=== PATIENT | male | born 1980 | race Caucasian/White ===

== ENCOUNTER 2016-11-27 15:52 | Emergency (ER) | payer MEDICARE, OTHER ==
--- NOTE | ~2016-11-27 | CT16 ---
[facility] A Service [facility] RADIOLOGY TEXT RESULTS PATIENT: ORION HUDDLESTON LOCATION: [facility] : 78 UNIT #: [id number] AGE: [address]: Jocelyne Rivera WELDING SETTER MANAGER TRADE SEX: M ORDER DR: [id number] [address] [address] [id number] E MR#: [id number] Acc #: [id number] NAME: ORION HUDDLESTON : 1980 SEX: M STUDY DATE/TIME: 11/27/2016 18:10 UNIT: SED ROOM: STUDY DESCRIPTION: CT Angio Chest for PE Attending Physician: Jocelyne Rivera A.P.R.N. Ordering Physician: Jocelyne Rivera A.P.R.N. Primary Care Physician: Sandra Smallwood M.D. MEDICAL IMAGING REPORT This report is preliminary unless electronic signature is present. EXAM Chest CT angiogram with contrast DATE OF STUDY 11/27/2016 PROCEDURE Axial contrast-enhanced CT angiogram with [address] exam was performed with one or more of the following radiation dose reduction techniques: automatic exposure control, adjustment of mA and/or kV according to patient size, and iterative reconstruction. COMPARISON Chest radiograph same date. CLINICAL HISTORY Congestion and wheezing. FINDINGS There is dense consolidation without central airway obstruction in the right upper lobe. There is no effusion. Lung parenchyma is otherwise normal. There is no mediastinal mass or adenopathy. There is no evidence of pulmonary embolism and bolus timing is adequate. Thoracic aorta is normal in caliber. Images of the upper abdomen are unremarkable. IMPRESSION 1. Dense right upper lobe consolidation without effusion. 2. Good bolus timing. No evidence of pulmonary embolism. 3. Normal thoracic aorta. [facility] A Service [facility] RADIOLOGY TEXT RESULTS PATIENT: ORION HUDDLESTON LOCATION: [facility] : 78 UNIT #: [id number] AGE: [address]: Jocelyne Rivera APRN SEX: M ORDER DR: Dictated by... David Knight M.D. THIS IS AN ELECTRONICALLY VERIFIED REPORT David Knight M.D. at 11/30/2016 4:32 PM TEV/roopa TD: 11/28/2016 12:38 JOB #: [id number] MEDICAL IMAGING REPORT
--- NOTE | ~2016-11-27 | CR63 ---
[facility] A Service [facility] RADIOLOGY TEXT RESULTS PATIENT: ORION HUDDLESTON LOCATION: [facility] : 78 UNIT #: [id number] AGE: [address]: Jocelyne Rivera MEDICAL BILLER CODER STUDENT ASSISTANT SEX: M ORDER DR: [id number] [address] [address] [id number] E MR#: [id number] Acc #: [id number] NAME: ORION HUDDLESTON : 1980 SEX: M STUDY DATE/TIME: 11/27/2016 15:51 UNIT: SED ROOM: STUDY DESCRIPTION: CR Chest 2 View Attending Physician: Jocelyne Rivera A.P.R.N. Ordering Physician: Jocelyne Rivera A.P.R.N. Primary Care Physician: Sandra Smallwood M.D. MEDICAL IMAGING REPORT This report is preliminary unless electronic signature is present. EXAM PA and lateral radiographs of the chest HISTORY Congestion and wheezing. TECHNIQUE PA and lateral radiographs of the chest are presented. COMPARISON 06/05/2016 FINDINGS The lungs are well-inflated. There is an area of relatively dense somewhat wedge-shaped airspace disease in the lateral right upper lobe abutting the lateral pleura. Centrally in the right suprahilar region, there are less well-defined patchier densities. I have that this represents pneumonia in the right upper lobe with more extensive consolidative change in the lateral right upper lobe. Please correlate with the patients clinical presentation. The somewhat wedge-shaped configuration of the denser airspace disease could raise differential diagnostic possibility, in the appropriate clinical setting, of pulmonary embolus with infarction. This is felt less likely. Follow-up to complete radiographic resolution is recommended. Slight blunting of the bilateral costophrenic sulci may reflect trace pleural effusions. No drainable pleural fluid collection. Remainder of lungs clear. No suspicious nodule. Heart and mediastinum normal in size and contour. Bony structures unremarkable. Upper abdomen unremarkable. [facility] A Service [facility] RADIOLOGY TEXT RESULTS PATIENT: ORION HUDDLESTON LOCATION: [facility] #: [id number] : 76 UNIT #: [id number] AGE: [address]: Jocelyne Rivera APRN STUDENT ASSISTANT SEX: M ORDER DR: Dictated by... Alfredo Coon M.D. THIS IS AN ELECTRONICALLY VERIFIED REPORT Alfredo Coon M.D. at 11/28/2016 8:22 PM ALEXANDRA/roopa TD: 11/28/2016 10:09 JOB #: [id number] MEDICAL IMAGING REPORT
[~2016-11-27 15:52] MED LIST: ALBUTEROL17 GM INH; ALIGN4 MG PO; ALPRAZOLAM PO; B12 SQ; BONIVA3 MG/3 ML IV; CALCIUM + D 6001 TA1 PO; CALCIUM 600 +1 EA10 PO; CARAFATE PO; CLARITIN10 M2 PO; DARVOCET-N 1001 TAB PO; DURAGESIC1 EAC1 TD; ENTYVIO300 MG IV; FISH OIL 1,0001 CA2 PO; FLINTSTONES1 EACH PO; FOLIC ACID PO; FOLIC ACID1 MG PO; HUMIRA40 MG/0.1 SQ; K-DUR20 ME1 PO; K-LOR20 MEQ PO; KCL PO; LORTAB 7.5-5001 TAB PO; MAGNESIUM400 MG PO; METHOTREXA25 MG/1 M1 INJ; NEXIUM PO; OXYCODONE HCL15 MG PO; PAXIL CR PO; PERCOCET 10/3251 TAB PO; PERCOCET7.5 PO; PHENERGAN PO; PREDNISONE PO; PREDNISONE10 MG PO; PROTONIX PO; RECLAST 55 MG/100 M IV; SIMETHICONE120 ML PO; SINGULAIR PO; SODIUM PHOSPHA MC; TUMS500 M1 PO; VITAMIN B12-FO1 EACH; VITAMIN D3400 UNI1 PO; VITAMIN D350000 UNIT PO; ZINC SULFATE220 M1 PO; ZOFRAN; ZOFRAN PO; [UNRECOGNIZED DRUG - OTHER] SQ
[2016-11-27 15:53] LABS: INFLUENZA A NEG (NEG); INFLUENZA B NEG (NEG)
[2016-11-27 17:41] LABS: BASOPHIL% 0.1 % (0-2.5); DIFF IND NO; EOSINOPHIL# 0.1 X10e3 (0-0.7); EOSINOPHIL% 0.6 % (0.0-7.0); HEMATOCRIT 41.4 % (38.0-50.0); HEMOGLOBIN 13.7 gm/dL (13.0-16.0); LYMPHOCYTE# 0.8 X10e3 (1.0-3.5); LYMPHOCYTE% 9.4 % (17.0-45.0); MEAN CELL VOLUME 88.5 FL (83-96); MEAN CORPUSCULAR HEMOGLOBIN 29.3 PG (28-34); MEAN CORPUSCULAR HGB CONC 33.1 g/dL (30-36); MEAN PLATELET VOLUME 8.8 FL (6.5-11.5); MONOCYTE# 0.2 X10e3 (0-1.0); MONOCYTE% 2.5 % (3.0-12.0); NEUTROPHIL# 7.1 X10e3 (1.5-7.1); NEUTROPHIL% 87.4 % (40-75); PLATELET COUNT 285 X10e3 (140-420); RED BLOOD COUNT 4.67 X10e (3.90-5.60); RED CELL DISTRIBUTION WIDTH 15.1 % (11.0-15.5); WHITE BLOOD COUNT 8.1 X10e3 (4.0-10.5)
[2016-11-27 17:58] LABS: ALBUMIN SERUM 3.9 g/dL (3.5-5.0); ALKALINE PHOSPHATASE 73 U/L (32-92); ALT (SGPT) 15 U/L (10-40); AST (SGOT) 20 U/L (10-42); BILIRUBIN,TOTAL 0.8 mg/dL (0.2-2.0); BLOOD UREA NITROGEN 13 mg/dL (9-23); BUN/CREATININE RATIO 11.81; CALCIUM SERUM 8.9 mg/dL (8.4-10.2); CARBON DIOXIDE 29 mmol/L (22-31); CHLORIDE 101 mmol/L (100-111); CREATININE SERUM 1.1 mg/dL (0.6-1.4); GLOM FILT RATE Estimated ABOVE60 mL/min (>60); GLUCOSE FASTING 141 mg/dL (70-110); POTASSIUM 3.2 mmol/L (3.5-5.1); SODIUM 140 mmol/L (135-145)
[2016-11-27] MEDS ORDERED: DOXYCYCLINE HY100 M3 PO (18:49)
[2016-12-06] MEDS ORDERED: POTASSIUM (22:23)
[2016-12-28] MEDS ORDERED: CALCIUM + D 6001 TA1 PO (18:49)
[2017-02-03] MEDS ORDERED: AMOXICILLIN500 M1 PO (13:36)
[2017-03-03] MEDS ORDERED: PREDNISOLONE5 MG PO (13:36)
[2017-03-03] MEDS ORDERED: B-12 (15:03)
[2017-03-03] MEDS ORDERED: ENTIVIO IV (15:03)
[2017-03-03] MEDS ORDERED: OXYCODONE PO (15:04)
[2017-03-03] MEDS ORDERED: ALPRAZOLAM0.25 MG PO (17:37)
[2017-03-03] MEDS ORDERED: VITAMIN D32000 UNIT PO (18:50)
[2017-03-03] MEDS ORDERED: K-DUR20 ME1 DOB (18:50)
[2017-03-03] MEDS ORDERED: PREDNISONE PO (18:50)
== END 2016-11-27 18:58 | disposition home or self-care (01) ==
LOC: CED 15:52
PROVIDERS: Nurse Practitioner
DX: J18.9 Pneumonia, unspecified organism (principal); F41.9 Anxiety disorder, unspecified; K50.90 Crohn's disease, unspecified, without complications
CPT/HCPCS: 36415; 71020; 71275; 80053; 85025; 87040; 87651; 87804; 96365; 99284; J0696; Q9967

== ENCOUNTER 2016-12-06 22:43 | Emergency (ER) | payer MEDICARE, OTHER ==
--- NOTE | ~2016-12-06 | CR63 ---
[facility] A Service of [facility] & [facility] RADIOLOGY TEXT RESULTS PATIENT: ORION HUDDLESTON LOCATION: SED : 76 UNIT #: [id number] AGE: [address]: FABIO ROSENBERG PA-C SEX: M ORDER DR: [id number] [address] [address] [id number] E MR#: [id number] Acc #: [id number] NAME: ORION HUDDLESTON. : 1980 SEX: M STUDY DATE/TIME: 12/07/2016 0:30 UNIT: SED ROOM: STUDY DESCRIPTION: CR Chest 2 View Attending Physician: Fabio Rosenberg Pa-C Ordering Physician: Sammy Cortes M.D. Primary Care Physician: Sandra Smallwood M.D. MEDICAL IMAGING REPORT This report is preliminary unless electronic signature is present. EXAM PA lateral chest date 12/07/2016 HISTORY Cough and possible pneumonia. Symptoms began last week. COMPARISON PA lateral chest 11/27/2016. CT chest 11/27/2016. FINDINGS Right upper lobe airspace disease has significantly improved with mild residual infiltrate remaining. No new airspace disease identified. Heart size normal. Left lung is clear. No pleural effusion or pneumothorax is identified. IMPRESSION 1. Significantly significant interval improvement in right upper lobe airspace disease since 11/27/2016 suggesting improving pneumonia. Mild residual infiltrate remains. No new airspace disease is evident. Dictated by... Ashley Romero M.D. THIS IS AN ELECTRONICALLY VERIFIED REPORT Ashley Romero M.D. at 12/07/2016 10:02 PM [facility]/ross TD: 12/07/2016 07:28 JOB #: [id number] MEDICAL IMAGING REPORT
--- NOTE | ~2016-12-06 | CT2 ---
[facility] A Service of [facility] & [facility] RADIOLOGY TEXT RESULTS PATIENT: ORION HUDDLESTON LOCATION: SED : 78 UNIT #: [id number] AGE: [address]: FABIO ROSENBERG PA-C SEX: M ORDER DR: [id number] [address] [address] [id number] E MR#: [id number] Acc #: [id number] NAME: ORION HUDDLESTON. : 1980 SEX: M STUDY DATE/TIME: 12/07/2016 0:39 UNIT: SED ROOM: STUDY DESCRIPTION: CT Abd and Pelv W Cont Attending Physician: Fabio Rosenberg Pa-C Ordering Physician: Sammy Cortes M.D. Primary Care Physician: Sandra Smallwood M.D. MEDICAL IMAGING REPORT This report is preliminary unless electronic signature is present. EXAM CT abdomen and pelvis with contrast 12/07/2016 HISTORY 36-year-old male with complaints of abdominal pain and cramping today. Blood from ileostomy tonight. History of colon resection, Crohn's disease. COMPARISON CT abdomen and pelvis with contrast 11/06/2016. TECHNIQUE This CT examination was performed with one or more of the following radiation dose reduction techniques: automatic exposure control, adjustment of mA and/or kV according to patient size, and iterative reconstruction. PROCEDURE 5 mm axial images from lung bases through lesser trochanters after intravenous contrast administration. Enteric contrast was also administered. Sagittal and coronal reformatted images were obtained. FINDINGS Although enteric contrast was administered, [id number] bowel loops are not opacified with enteric contrast at the time of image acquisition. Colectomy changes are present. Right lower quadrant ileostomy in place. There is air contrast dilation of proximal small bowel loops, with more distal loops being less well distended. However, there is no convincing evidence of high-grade obstruction on this examination. There is a short segment of small bowel in the midline of the lower abdomen (series 2 image 66 denoted by arrows) which appears to have mild abnormal wall thickening and enhancement suggesting active inflammatory process. No fistula or abscess is seen. No free air or pneumatosis. The ileostomy itself appears unremarkable. [facility]. [facility] A Service of [facility] & [facility] RADIOLOGY TEXT RESULTS PATIENT: ORION HUDDLESTON LOCATION: SED : 76 UNIT #: [id number] AGE: [address]: FABIO ROSENBERG PA-C SEX: M ORDER DR: Lung bases are clear. Noncontrast appearance of the liver, gallbladder, spleen, pancreas, adrenals and kidneys within normal limits. Mild bilateral renal pelviectasis unchanged. PELVIS: No free air, free fluid or abscess. Urinary bladder and rectum are within normal limits. IMPRESSION 1. No evidence of high-grade bowel obstruction. There is short segment wall thickening and enhancement of bowel in the midline of the lower abdomen/pelvis suggesting active inflammatory process in this patient with a history of Crohn's disease. No evidence of fistula or abscess. 2. Colectomy with right lower quadrant ileostomy. 3. Mesenteric lymph nodes are less conspicuous than on the previous 11/06/2016 examination suggesting they represent benign reactive findings. Dictated by... Ashley Romero M.D. THIS IS AN ELECTRONICALLY VERIFIED REPORT Ashley Romero M.D. at 12/07/2016 10:02 PM EVE/beth TD: 12/07/2016 07:48 JOB #: [id number] MEDICAL IMAGING REPORT
[~2016-12-06 22:43] MED LIST changes: +DOXYCYCLINE HY100 M3 PO; +POTASSIUM
[2016-12-06 23:10] LABS: BASOPHIL# 0.1 X10e3 (0-0.3); BASOPHIL% 0.6 % (0-2.5); EOSINOPHIL% 0.1 % (0.0-7.0); HEMATOCRIT 36.5 % (38.0-50.0); HEMOGLOBIN 11.9 gm/dL (13.0-16.0); LYMPHOCYTE# 1.4 X10e3 (1.0-3.5); MEAN CELL VOLUME 89.1 FL (83-96); MEAN CORPUSCULAR HEMOGLOBIN 29.1 PG (28-34); MEAN CORPUSCULAR HGB CONC 32.7 g/dL (30-36); MEAN PLATELET VOLUME 7.8 FL (6.5-11.5); MONOCYTE# 0.6 X10e3 (0-1.0); MONOCYTE% 5.8 % (3.0-12.0); NEUTROPHIL# 7.7 X10e3 (1.5-7.1); NEUTROPHIL% 79.5 % (40-75); PLATELET COUNT 251 X10e3 (140-420); WHITE BLOOD COUNT 9.7 X10e3 (4.0-10.5)
[2016-12-06 23:13] LABS: DIFF IND NO
[2016-12-06 23:15] LABS: INR 1.1; PROTHROMBIN TIME (PATIENT) 12.2 SECONDS (9.5-12.4)
[2016-12-06 23:24] LABS: ALBUMIN SERUM 3.4 g/dL (3.5-5.0); ALKALINE PHOSPHATASE 53 U/L (32-92); ALT (SGPT) 17 U/L (10-40); AST (SGOT) 17 U/L (10-42); BILIRUBIN, DIRECT 0.1 mg/dL (0.0-0.2); BILIRUBIN,INDIRECT 0.4 mg/dL (0.0-0.9); BILIRUBIN,TOTAL 0.5 mg/dL (0.2-2.0); BLOOD UREA NITROGEN 15 mg/dL (9-23); CALCIUM SERUM 8.4 mg/dL (8.4-10.2); CARBON DIOXIDE 28 mmol/L (22-31); CHLORIDE 101 mmol/L (100-111); GLOM FILT RATE Estimated ABOVE60 mL/min (>60); GLUCOSE FASTING 113 mg/dL (70-110); POTASSIUM 3.9 mmol/L (3.5-5.1); PROTEIN TOTAL SERUM 5.9 g/dL (6.0-8.3); SODIUM 138 mmol/L (135-145)
[2016-12-06 23:57] LABS: URINE SOURCE CLEAN CATCH
[2016-12-07 00:02] LABS: URINE APPEARANCE CLEAR; URINE BILIRUBIN NEG (NEG); URINE BLOOD NEG (NEG); URINE COLOR YELLOW; URINE GLUCOSE NEG (NORM); URINE KETONE NEG (NEG); URINE LEUKOCYTE ESTERASE NEG (NEG); URINE NITRATE NEG (NEG); URINE PH 6.5 (5-8); URINE PROTEIN NEG (NEG); URINE UROBILINOGEN 0.2 MG/DL (NORM)
[2016-12-07 00:03] LABS: MICRO INDICATED? NO
[2016-12-28] MEDS ORDERED: CALCIUM + D 6001 TA1 PO (18:49)
[2017-02-03] MEDS ORDERED: AMOXICILLIN500 M1 PO (13:36)
[2017-03-03] MEDS ORDERED: PREDNISOLONE5 MG PO (13:36)
[2017-03-03] MEDS ORDERED: B-12 (15:03)
[2017-03-03] MEDS ORDERED: ENTIVIO IV (15:03)
[2017-03-03] MEDS ORDERED: OXYCODONE PO (15:04)
[2017-03-03] MEDS ORDERED: ALPRAZOLAM0.25 MG PO (17:37)
[2017-03-03] MEDS ORDERED: VITAMIN D32000 UNIT PO (18:50)
[2017-03-03] MEDS ORDERED: K-DUR20 ME1 DOB (18:50)
[2017-03-03] MEDS ORDERED: PREDNISONE PO (18:50)
== END 2016-12-07 02:21 | disposition home or self-care (01) ==
LOC: SED 22:43
PROVIDERS: Physician Assistant
DX: K50.00 Crohn's disease of small intestine without complications (principal); J18.9 Pneumonia, unspecified organism; F41.9 Anxiety disorder, unspecified; M81.0 Age-related osteoporosis without current pathological fracture; Z98.890 Other specified postprocedural states; Z79.899 Other long term (current) drug therapy
CPT/HCPCS: 36415; 71020; 74177; 80048; 80076; 81003; 82270; 85025; 85610; 85730; 96361; 96374; 99284; J2270; J2405; Q9967

== ENCOUNTER → 2016-12-18 | Outpatient (CLI) | payer MEDICARE, OTHER ==
[~2016-12-18] MED LIST changes: +ALPRAZOLAM0.25 MG PO; +AMOXICILLIN500 M1 PO; +B-12; +ENTIVIO IV; +K-DUR20 ME1; +K-DUR20 ME1 DOB; +OXYCODONE PO; +PREDNISOLONE5 MG PO; +VITAMIN D250000 UNIT PO/SL; +VITAMIN D32000 UNIT PO
--- NOTE | ~2016-12-18 | CR63 ---
[facility] A Service of [facility] & [facility] RADIOLOGY TEXT RESULTS PATIENT: ORION HUDDLESTON LOCATION: [facility] : 78 UNIT #: [id number] AGE: [address]: Sandra Smallwood MD SEX: M ORDER DR: [id number] [facility] [address]. [place], [place] [address] [id number] O MR#: [id number] Acc #: [id number] NAME: ORION HUDDLESTON. : 1980 SEX: M STUDY DATE/TIME: 12/18/2016 16:02 UNIT: [facility] ROOM: STUDY DESCRIPTION: CR Chest 2 View Attending Physician: Sandra Smallwood M.D. Ordering Physician: Sandra Smallwood M.D. Primary Care Physician: Sandra Smalwlood M.D. MEDICAL IMAGING REPORT This report is preliminary unless electronic signature is present EXAM PA and lateral chest dated 12/18/2016. COMPARISON STUDIES 12/07/2016 HISTORY Follow up of pneumonia, shortness of breath for 3 weeks. FINDINGS PA and lateral views of the chest are obtained. Cardiac size in the patient is upper limits of normal. Vascular pattern is normal. The infiltrate right upper lobe is improved but it has not cleared completely. CONCLUSION Decrease in right upper lobe infiltrate. It has not cleared completely. Dictated by... Alfredo Galeas M.D. THIS IS AN ELECTRONICALLY VERIFIED REPORT Alfredo Galeas M.D. at 12/21/2016 2:44 PM Juany TD: 12/18/2016 20:27 JOB #: [id number] MEDICAL IMAGING REPORT Page 1 of 1 COPY
== END | disposition home or self-care (01) ==
LOC: CRAD 15:47
DX: J18.9 Pneumonia, unspecified organism (principal); R91.8 Other nonspecific abnormal finding of lung field
CPT/HCPCS: 71020

== ENCOUNTER 2016-12-20 19:03 | Emergency (ER) | payer MEDICARE, OTHER ==
--- NOTE | ~2016-12-20 | CR72 ---
[facility] A Service of [facility] & [facility] RADIOLOGY TEXT RESULTS PATIENT: ORION HUDDLESTON LOCATION: SED : 78 UNIT #: [id number] AGE: [address]: Alfredo Gonsalez MD SEX: M ORDER DR: [id number] [place] [id number] E MR#: [id number] Acc #: [id number] NAME: ORION HUDDLESTON : 1980 SEX: M STUDY DATE/TIME: 12/20/2016 19:20 UNIT: SED ROOM: STUDY DESCRIPTION: CR Chest Single View Portable Attending Physician: Alfredo Gonsalez M.D. Ordering Physician: Alfredo Gonsalez M.D. Primary Care Physician: Sandra Smallwood M.D. MEDICAL IMAGING REPORT This report is preliminary unless electronic signature is present. EXAM Portable chest HISTORY Tachycardia for 2 weeks. FINDINGS The cardiac size and pulmonary vascularity are within normal limits. Very mild mid-right thoracic curve. No infiltrates or effusions. IMPRESSION No acute findings. Lungs are clear. Dictated by... Ghanshyam Fountain M.D. THIS IS AN ELECTRONICALLY VERIFIED REPORT Ghanshyam Fountain M.D. at 12/21/2016 3:04 PM MAITE/beth TD: 12/21/2016 09:27 JOB #: [id number] MEDICAL IMAGING REPORT Page 1 of 1
--- NOTE | ~2016-12-20 | EKG ---
PATIENT: ORION HUDDLESTON UNIT #: [id number] Ventricular Rate: 116 BPM Atrial Rate: 116 BPM P-R Interval: 140 ms QRS Duration: 80 ms Q-T Interval: 320 ms QTC Calculation(Bezet): 444 ms P [place]: 47 degrees Calculated R [place]: 17 degrees Calculated T [place]: 14 degrees Diagnosis Line: Sinus tachycardia Diagnosis Line: Nonspecific ST abnormality Diagnosis Line: Abnormal ECG Diagnosis Line: When compared with ECG of 05-JUN-2016 16:39, Diagnosis Line: Vent. rate has increased BY 39 BPM Diagnosis Line: Confirmed by TRICIA AYERS MD ([id number]) on Diagnosis Line: 01/14/2017 7:10:20 AM INTERPRETING : NICHOLAS
[~2016-12-20 19:03] MED LIST changes: -ALPRAZOLAM0.25 MG PO; -AMOXICILLIN500 M1 PO; -B-12; -ENTIVIO IV; -K-DUR20 ME1; -K-DUR20 ME1 DOB; -OXYCODONE PO; -PREDNISOLONE5 MG PO; -VITAMIN D250000 UNIT PO/SL; -VITAMIN D32000 UNIT PO
[2016-12-20 19:59] LABS: BASOPHIL# 0.3 X10e3 (0-0.3); BASOPHIL% 4.1 % (0-2.5); DIFF IND NO; EOSINOPHIL% 0.2 % (0.0-7.0); HEMATOCRIT 36.5 % (38.0-50.0); HEMOGLOBIN 11.9 gm/dL (13.0-16.0); LYMPHOCYTE# 1.1 X10e3 (1.0-3.5); LYMPHOCYTE% 13.4 % (17.0-45.0); MEAN CELL VOLUME 90.6 FL (83-96); MEAN CORPUSCULAR HEMOGLOBIN 29.6 PG (28-34); MEAN CORPUSCULAR HGB CONC 32.7 g/dL (30-36); MEAN PLATELET VOLUME 7.5 FL (6.5-11.5); MONOCYTE# 0.2 X10e3 (0-1.0); MONOCYTE% 2.2 % (3.0-12.0); NEUTROPHIL# 6.6 X10e3 (1.5-7.1); NEUTROPHIL% 80.1 % (40-75); PLATELET COUNT 240 X10e3 (140-420); RED BLOOD COUNT 4.03 X10e (3.90-5.60); RED CELL DISTRIBUTION WIDTH 16.1 % (11.0-15.5); WHITE BLOOD COUNT 8.3 X10e3 (4.0-10.5)
[2016-12-20 20:05] LABS: PROTHROMBIN TIME (PATIENT) 11.1 SECONDS (9.5-12.4)
[2016-12-20 20:11] LABS: POC - CKMB <1.0 ng/mL (0.0-7.9); POC - MYOGLOBIN 30.6 ng/mL (0.0-169.0)
[2016-12-20 20:12] LABS: POC - TROPONIN <0.05 ng/mL (<=0.05)
[2016-12-20 20:12] LABS: PARTIAL THROMBOPLASTIN TIME 23.5 SECONDS (25.6-38.1)
[2016-12-20 20:15] LABS: ALBUMIN SERUM 3.5 g/dL (3.5-5.0); ALKALINE PHOSPHATASE 65 U/L (32-92); ALT (SGPT) 24 U/L (10-40); AST (SGOT) 19 U/L (10-42); BILIRUBIN, DIRECT <0.1 mg/dL (0.0-0.2); BILIRUBIN,INDIRECT 0.1 mg/dL (0.0-0.9); BILIRUBIN,TOTAL 0.2 mg/dL (0.2-2.0); BLOOD UREA NITROGEN 19 mg/dL (9-23); BUN/CREATININE RATIO 15.83; CALCIUM SERUM 8.8 mg/dL (8.4-10.2); CARBON DIOXIDE 27 mmol/L (22-31); CHLORIDE 105 mmol/L (100-111); CREATININE SERUM 1.2 mg/dL (0.6-1.4); GLOM FILT RATE Estimated 76.3 mL/min (>60); GLUCOSE FASTING 141 mg/dL (70-110); LIPASE 30 U/L (22-51); PROTEIN TOTAL SERUM 6.5 g/dL (6.0-8.3); SODIUM 138 mmol/L (135-145)
[2016-12-20 20:52] LABS: URINE SOURCE CLEAN CATCH
[2016-12-20 20:55] LABS: URINE APPEARANCE CLEAR; URINE BILIRUBIN NEG (NEG); URINE BLOOD NEG (NEG); URINE COLOR YELLOW; URINE GLUCOSE NEG (NORM); URINE KETONE NEG (NEG); URINE LEUKOCYTE ESTERASE NEG (NEG); URINE NITRATE NEG (NEG); URINE PH 6.5 (5-8); URINE PROTEIN NEG (NEG); URINE UROBILINOGEN 0.2 MG/DL (NORM)
[2016-12-20 20:58] LABS: MICRO INDICATED? NO
[2016-12-28] MEDS ORDERED: CALCIUM + D 6001 TA1 PO (18:49)
[2017-02-03] MEDS ORDERED: AMOXICILLIN500 M1 PO (13:36)
[2017-03-03] MEDS ORDERED: PREDNISOLONE5 MG PO (13:36)
[2017-03-03] MEDS ORDERED: ENTIVIO IV (15:03)
[2017-03-03] MEDS ORDERED: B-12 (15:03)
[2017-03-03] MEDS ORDERED: OXYCODONE PO (15:04)
[2017-03-03] MEDS ORDERED: ALPRAZOLAM0.25 MG PO (17:37)
[2017-03-03] MEDS ORDERED: VITAMIN D32000 UNIT PO (18:50)
[2017-03-03] MEDS ORDERED: K-DUR20 ME1 DOB (18:50)
[2017-03-03] MEDS ORDERED: PREDNISONE PO (18:50)
== END 2016-12-20 21:15 | disposition home or self-care (01) ==
LOC: SED 19:03
PROVIDERS: Emergency Medicine
DX: R00.2 Palpitations (principal); R53.83 Other fatigue; K50.90 Crohn's disease, unspecified, without complications; F41.9 Anxiety disorder, unspecified
CPT/HCPCS: 36415; 71010; 80048; 80076; 81003; 82553; 83690; 83874; 84100; 84484; 85025; 85610; 85730; 93005; 96360; 99284

== ENCOUNTER → 2016-12-28 | Outpatient (CLI) | payer MEDICARE, OTHER ==
[~2016-12-28] MED LIST changes: +ALPRAZOLAM0.25 MG PO; +AMOXICILLIN500 M1 PO; +B-12; +ENTIVIO IV; +K-DUR20 ME1; +K-DUR20 ME1 DOB; +OXYCODONE PO; +PREDNISOLONE5 MG PO; +VITAMIN D250000 UNIT PO/SL; +VITAMIN D32000 UNIT PO
== END | disposition home or self-care (01) ==
LOC: CSSDAY 12:57
DX: K50.90 Crohn's disease, unspecified, without complications (principal)
CPT/HCPCS: 96365; J3380

== ENCOUNTER → 2017-02-03 | Outpatient (CLI) | payer MEDICARE, OTHER | END | disposition home or self-care (01) | LOC: CSSDAY 01-25 10:00 | DX: K50.90 Crohn's disease, unspecified, without complications (principal); Z79.899 Other long term (current) drug therapy | CPT/HCPCS: 96413; J3380 ==

== ENCOUNTER → 2017-02-25 | Outpatient (CLI) | payer MEDICARE, OTHER ==
[2017-02-25 10:29] LABS: HEMATOCRIT 40.4 % (38.0-50.0); HEMOGLOBIN 13.4 gm/dL (13.0-16.0); MEAN CELL VOLUME 90.2 FL (83-96); MEAN CORPUSCULAR HEMOGLOBIN 29.9 PG (28-34); MEAN CORPUSCULAR HGB CONC 33.2 g/dL (30-36); MEAN PLATELET VOLUME 7.2 FL (6.5-11.5); RED BLOOD COUNT 4.48 X10e (3.90-5.60); RED CELL DISTRIBUTION WIDTH 14.7 % (11.0-15.5); WHITE BLOOD COUNT 8.4 X10e3 (4.0-10.5)
[2017-02-25 10:52] LABS: BUN/CREATININE RATIO 9.23; CREATININE SERUM 1.3 mg/dL (0.6-1.4); GLOM FILT RATE Estimated 69.2 mL/min (>60); POTASSIUM 3.6 mmol/L (3.5-5.1)
[2017-02-25 13:13] LABS: THYROID STIMULATING HORMONE 3.53 uIU/ml (0.34-5.60)
[2017-02-25 15:12] LABS: FREE THYROXIN (T4) 0.91 ng/dL (0.58-1.64)
== END | disposition home or self-care (01) ==
LOC: SLAB 10:16
PROVIDERS: Internal Medicine
DX: R00.2 Palpitations (principal); E78.1 Pure hyperglyceridemia; K50.90 Crohn's disease, unspecified, without complications
CPT/HCPCS: 36415; 80048; 80061; 84439; 84443; 85027

== ENCOUNTER → 2017-03-03 | Outpatient (CLI) | payer MEDICARE, OTHER | END | disposition home or self-care (01) | LOC: CSSDAY 10:00 | DX: K50.90 Crohn's disease, unspecified, without complications (principal); Z79.899 Other long term (current) drug therapy | CPT/HCPCS: 96365; J3380 ==

== ENCOUNTER → 2017-04-02 | Outpatient (CLI) | payer MEDICARE, OTHER | END | disposition home or self-care (01) | LOC: CSSDAY 03-31 13:00 | DX: K50.90 Crohn's disease, unspecified, without complications (principal); Z79.899 Other long term (current) drug therapy | CPT/HCPCS: 96365; J3380 ==

== ENCOUNTER 2017-04-26 15:16 | Emergency (ER) | payer MEDICARE, OTHER ==
--- NOTE | ~2017-04-26 | CT2 ---
[facility]. [facility] A Service of [facility] RADIOLOGY TEXT RESULTS PATIENT: ORION HUDDLESTON LOCATION: SED : 76 UNIT #: [id number] AGE: [address]: Prakash Abdalla MD SEX: M ORDER DR: [id number] [address] [address] [id number] E MR#: [id number] Acc #: [id number] NAME: ORION HUDDLESTON. : 1980 SEX: M STUDY DATE/TIME: 04/26/2017 16:57 UNIT: SED ROOM: STUDY DESCRIPTION: CT Abd and Pelv W Cont Attending Physician: Prakash Abdalla M.D. Ordering Physician: Prakash Abdalla M.D. Primary Care Physician: Sandra Smallwood M.D. MEDICAL IMAGING REPORT This report is preliminary unless electronic signature is present. EXAM CT abdomen and pelvis with IV contrast HISTORY Left side abdomen pain for 2 weeks. Nausea, vomiting. Crohn disease. Prior colectomy. This CT exam was performed with one or more of the following radiation dose reduction techniques: automatic exposure control, adjustment of mA and/or kV according to patient size, and iterative reconstruction. FINDINGS CT abdomen and pelvis was performed with IV contrast. CT abdomen: Mild dilatation of multiple loops of small bowel throughout the abdomen, similar to CT 12/07/2016. Colectomy. Mild fatty infiltration of the liver. Gallbladder, spleen, pancreas, left kidney, and adrenal glands are normal. Incidental tiny subcentimeter cortical cysts in the upper pole of the right kidney. Normal caliber abdominal aorta. No ascites. Right lower quadrant ileostomy. CT pelvis: Moderate wall thickening of a small bowel segment in the central pelvis extending over a length of close to 6 cm, with interval progression of this finding compared to the prior CT. Given the patient's history, this is most likely secondary to Crohn disease. Other infectious or inflammatory enteritis is a consideration. There is mild adjacent inflammatory stranding. No abscess. No free fluid. Proctocolectomy. Urinary bladder is normal. The small bowel distal to the thickened segment in the central pelvis is decompressed and there is borderline to mild dilatation of small bowel proximal to this level, suggesting low grade partial small bowel obstruction. IMPRESSION [facility]. [facility] A Service of [facility] RADIOLOGY TEXT RESULTS PATIENT: ORION HUDDLESTON LOCATION: [facility] : 76 UNIT #: [id number] AGE: [address]: Prakash Abdalla MD SEX: M ORDER DR: 1. Probable low grade partial small bowel obstruction at the level of the distal small bowel in the central pelvis where there is a thickened segment of small bowel over a length close to 6 cm with adjacent inflammatory stranding, most likely secondary to Crohn disease given the patient's history, with probable low grade stricture resulting in mild small bowel obstruction. The most proximal small bowel is moderately dilated and is similar in appearance to CT 12/07/2016. 2. No abscess or free fluid. 3. No acute findings on the remainder of the study. 4. Proctocolectomy. Right lower quadrant ileostomy. 1. Dictated by... Ghanshyam Fountain M.D. THIS IS AN ELECTRONICALLY VERIFIED REPORT Ghanshyam Fountain M.D. at 04/27/2017 2:35 PM Dominik TD: 04/27/2017 08:14 JOB #: [id number] MEDICAL IMAGING REPORT Page 1 of 1
[~2017-04-26 15:16] MED LIST changes: -K-DUR20 ME1; -VITAMIN D250000 UNIT PO/SL
[2017-04-26 16:09] LABS: BASOPHIL% 0.3 % (0-2.5); EOSINOPHIL# 0.2 X10e3 (0-0.7); EOSINOPHIL% 2.8 % (0.0-7.0); HEMATOCRIT 42.2 % (38.0-50.0); HEMOGLOBIN 14.1 gm/dL (13.0-16.0); LYMPHOCYTE# 1.5 X10e3 (1.0-3.5); LYMPHOCYTE% 24.2 % (17.0-45.0); MEAN CELL VOLUME 88.6 FL (83-96); MEAN CORPUSCULAR HEMOGLOBIN 29.7 PG (28-34); MEAN CORPUSCULAR HGB CONC 33.5 g/dL (30-36); MEAN PLATELET VOLUME 7.5 FL (6.5-11.5); MONOCYTE# 0.5 X10e3 (0-1.0); MONOCYTE% 7.8 % (3.0-12.0); NEUTROPHIL% 64.9 % (40-75); PLATELET COUNT 281 X10e3 (140-420); RED BLOOD COUNT 4.76 X10e (3.90-5.60); WHITE BLOOD COUNT 6.1 X10e3 (4.0-10.5)
[2017-04-26 16:11] LABS: DIFF IND NO
[2017-04-26 16:35] LABS: ALBUMIN SERUM 4.4 g/dL (3.5-5.0); BILIRUBIN, DIRECT 0.1 mg/dL (0.0-0.2); BILIRUBIN,INDIRECT 0.6 mg/dL (0.0-0.9); BILIRUBIN,TOTAL 0.7 mg/dL (0.2-2.0); CALCIUM SERUM 8.7 mg/dL (8.4-10.2); GLOM FILT RATE Estimated 95.1 mL/min (>60); POTASSIUM 3.1 mmol/L (3.5-5.1); PROTEIN TOTAL SERUM 7.6 g/dL (6.0-8.3)
[2017-04-26 16:52] LABS: URINE SOURCE CLEAN CATCH
[2017-04-26 17:02] LABS: URINE APPEARANCE CLEAR; URINE BILIRUBIN NEG (NEG); URINE BLOOD NEG (NEG); URINE COLOR YELLOW; URINE GLUCOSE NEG (NORM); URINE KETONE 1+ (NEG); URINE LEUKOCYTE ESTERASE NEG (NEG); URINE NITRATE NEG (NEG); URINE PH 5.5 (5-8); URINE PROTEIN NEG (NEG); URINE SPECIFIC GRAVITY <=1.005 (1.003-1.035); URINE UROBILINOGEN 0.2 MG/DL (NORM)
[2017-04-26 17:07] LABS: MICRO INDICATED? NO
== END 2017-04-26 21:58 ==
LOC: SED 15:16
PROVIDERS: Emergency Medicine
DX: K56.60 Unspecified intestinal obstruction (principal); E87.6 Hypokalemia; F41.9 Anxiety disorder, unspecified; Z98.890 Other specified postprocedural states; Z79.899 Other long term (current) drug therapy
CPT/HCPCS: 36415; 74177; 80048; 80076; 81003; 83690; 85025; 96361; 96365; 96375; 96376; 99285; J0500; J1100; J1170; J2405; J2765; Q9967

== ENCOUNTER 2017-05-23 20:29 | Inpatient (IN) | payer MEDICARE, OTHER ==
[~2017-05-23] VITALS: Ht 170.2 cm; Wt 71.2 kg
--- NOTE | ~2017-05-23 | CR72 ---
[facility] A Service of [facility] & [facility] RADIOLOGY TEXT RESULTS PATIENT: ORION HUDDLESTON LOCATION: [place] [address] : 76 UNIT #: [id number] AGE: [address]: Reynaldo Canales MD SEX: M ORDER DR: [id number] [place] [id number] I MR#: [id number] Acc #: [id number] NAME: ORION HUDDLESTON. : 1980 SEX: M STUDY DATE/TIME: 05/23/2017 21:46 UNIT: SEDOF ROOM: [facility] STUDY DESCRIPTION: CR Chest Single View Portable Attending Physician: Erika Collins M.D. Ordering Physician: Alfredo Gonsalez M.D. Primary Care Physician: Sandra Smallwood M.D. MEDICAL IMAGING REPORT This report is preliminary unless electronic signature is present. EXAM Portable chest HISTORY Weakness and heart palpitations for 1 month. FINDINGS A single AP portable view of the chest shows both lungs to be clear. The heart is normal in size. The mediastinal contour is normal. No significant bone abnormalities are seen. IMPRESSION Normal portable chest. Dictated by... Ghanshyam Fountain M.D. THIS IS AN ELECTRONICALLY VERIFIED REPORT Ghanshyam Fountain M.D. at 05/24/2017 10:25 PM MAITE/beth TD: 05/24/2017 10:59 JOB #: [id number] MEDICAL IMAGING REPORT Page 1 of 1
--- NOTE | ~2017-05-23 | EKG ---
PATIENT: ORION HUDDLESTON UNIT #: [id number] Ventricular Rate: 103 BPM Atrial Rate: 103 BPM P-R Interval: 134 ms QRS Duration: 76 ms Q-T Interval: 348 ms QTC Calculation(Bezet): 455 ms P [place]: 40 degrees Calculated R [place]: 4 degrees Calculated T [place]: 30 degrees Diagnosis Line: Sinus tachycardia Diagnosis Line: Nonspecific ST abnormality Diagnosis Line: Abnormal ECG Diagnosis Line: No previous ECGs available Diagnosis Line: Confirmed by DONNELL TOLENTINO MD ([id number]) on Diagnosis Line: 05/24/2017 1:51:11 PM INTERPRETING MD: RANDA BURKETT
--- NOTE | ~2017-05-23 | DS ---
Unit #: [id number] #: [id number] Patient: ORION HUDDLESTON [id number] [address] [place], [place] [address] [id number] I MR#: [id number] NAME: ORION HUDDLESTON. ROOM: 467 Age: 36 Sex: M Admission Date: 05/24/2017 : 1980 Discharge Date: 05/25/2017 Attending Physician: Reynaldo Canales M.D. Primary Care Physician: Sandra Smallwood M.D. DISCHARGE SUMMARY DISCHARGE DIAGNOSES 1. Acute blood loss anemia. 2. Gastrointestinal bleed. 3. Crohn disease. HOSPITAL COURSE The patient is a 36-year-old male who presented to [facility] emergency department with complaint of bleeding from his ostomy. He has a history of Crohn disease and is status post colectomy with ileostomy. Patient states that approximately 24 hours prior to admission, he had a sharp abdominal pain and a few hours later began to notice some blood collecting in his ostomy bag. As a result, he came to the emergency department and has been admitted to [facility]. Patient's hemoglobin was 13.4 upon admission, but dropped slowly. At the time of discharge, his hemoglobin recheck is 9.3. Dr. Ba with gastroenterology was consulted, but he has further consulted the patient's usual bleach chlorinator. At this time, they feel like the patient would be better suited by being seen by his usual physician who is familiar with his anatomy. As a result, the patient is being transferred to [facility] where he can be seen by Dr. Son. CT testing done prior to discharge reveals a segment of active small bowel inflammation in the midpelvis, but it is also noted that it has improved significantly since an exam done approximately one month ago. There was some residual mild focal small bowel wall thickening, some minimal adjacent soft tissue stranding, which was thought to possibly be active Crohn disease and/or an associated small bowel stricture. Further evaluation and treatment will be performed at [facility]. DISCHARGE MEDICATIONS 1. Cobalamin 1000 mcg monthly IM. 2. Vitamin D 50,000 units weekly. 3. Dilaudid q.2 hours p.r.n. breakthrough pain. 4. Potassium chloride 20 mEq daily. 5. Calcium plus vitamin D 500 mg daily. 6. Oxycodone 20 mg p.o. q.4 hours p.r.n. pain. 7. Protonix drip 80 mg an hour. 8. Solu-Medrol 60 mg IV q.8. 9. Xanax 0.25 mg p.o. t.i.d. FOLLOWUP Patient has been discharged to [facility]. Appropriate followup can be determined upon discharge from that facility. Unit #: [id number] #: [id number] Patient: ORION HUDDLESTON Dictated by... Isabela Patton/eleni TD: 05/26/2017 12:24 JOB #: [id number] DISCHARGE SUMMARY Page 1 of 1 X Reynaldo Canales MD X DISCHARGE SUMMARY
--- NOTE | ~2017-05-23 | HP ---
Unit #: [id number] #: [id number] Patient: ORION HUDDLESTON [id number] [address] [place], [place] [address] [id number] MR#: [id number] NAME: ORION HUDDLESTON ROOM: 467 Age: 36 Sex: M Admission Date: 05/24/2017 : 1980 Attending Physician: Reynaldo Canales M.D. Primary Care Physician: Sandra Smallwood M.D. HISTORY AND PHYSICAL CHIEF COMPLAINT Bleeding. HISTORY OF PRESENT ILLNESS The patient is a 36-year-old male with a history of Crohn and colon resection status post ileostomy who presents to [facility] secondary to bleeding from his ostomy. He states that, about 24 hours before the significant bleeding began, he had sharp abdominal pain that started after he ate dinner. It was associated with nausea but no vomiting. He states he has been unable to tolerate any oral intake since then. He states that, shortly thereafter, he began to notice blood in his ostomy bag that has gotten progressively worse. The blood is dark. The patient denies fevers. PAST MEDICAL HISTORY 1. Crohn. 2. Osteoporosis. 3. B12 deficiency. 4. Anxiety and depression. PAST SURGICAL HISTORY 1. Colectomy. 2. Small bowel resection x2. SOCIAL HISTORY The patient denies alcohol, tobacco and illicit drug use. FAMILY HISTORY Coronary artery disease, melanoma, diabetes and lung cancer. ALLERGIES No known drug allergies. HOME MEDICATIONS 1. Xanax 0.25 mg p.o. t.i.d. p.r.n. 2. Vitamin B12 monthly. 3. Oxycodone 20 mg p.o. q.4 hours p.r.n. 4. Calcium plus vitamin D 600 mg 1 p.o. daily. 5. K-Dur 20 mEq p.o. daily. 6. Prednisone 40 mg daily. 7. Vitamin D2 - 50,000 units weekly. REVIEW OF SYSTEMS Ten-point review of systems was obtained; negative except as per HPI with Unit #: [id number] #: [id number] Patient: ORION HUDDLESTON the addition of dizziness with standing and shortness of breath with exertion. Both started since his bleeding began. PHYSICAL EXAM VITAL SIGNS: Temperature 98, pulse 91, blood pressure 124/83. GENERAL: This is a 36-year-old male in no acute distress who appears stated age. HEENT: Pupils equally round. Extraocular movements intact. Mucous membranes dry. NECK: Supple. No JVD. No lymphadenopathy. CARDIAC: Regular rate and rhythm. No murmurs, gallops or rubs. LUNGS: Clear to auscultation bilaterally. ABDOMEN: Diffusely tender to palpation, greatest around the ostomy site. Soft. Nondistended. EXTREMITIES: No clubbing, cyanosis or edema. They are warm and dry. PSYCHIATRIC: Alert and oriented x3. Affect is appropriate. NEUROLOGIC: Cranial nerves II-XII intact grossly. Patient moves all extremities equally and with purpose. SKIN: No rashes, bruises or ulcers. MUSCULOSKELETAL: No muscle or joint pain. No muscle or joint swelling. DIAGNOSTIC STUDIES LABORATORIES: Patient's hemoglobin was 13.4 upon admission, recheck 11.4 at 7 a.m. with next recheck at noon also 11.4, essentially normal with the exception of a blood sugar of 137, likely secondary to his prednisone. IMAGING: Chest x-ray done at the time of admission - normal. ASSESSMENT AND PLAN 1. GI bleed. The patient was recently admitted at [facility] where he was treated for an acute Crohn flare. He received IV steroids, bowel rest and pain control. He tells me, as well, that at that time he was diagnosed with a small bowel stricture that resulted in obstruction. Evaluated. This bleed could certainly be secondary to repeat/worsening Crohn. It could also, however, be secondary to gastric ulcer given the patient's chronic prednisone use. Currently I am favoring the latter. I will, however, order a CT abdomen and pelvis, and GI consult has been obtained. 2. Acute blood loss anemia. The patient is symptomatic. He complains of dizziness and palpitations with standing. Recheck of his hemoglobin seems to indicate that he has had no further blood loss; however, I will repeat another hemoglobin now and in the morning. 3. Iatrogenic adrenal insufficiency. Patient has been on prednisone for 5 months. I have switched his steroids to IV. I have started 40 mg IV daily at this time but will defer increased doses for treatment of possible Crohn after evaluation by gastroenterology. 4. Acute pain. I have started the patient on IV Dilaudid as needed for breakthrough pain. 5. Prophylaxis. Patient will be started on SCDs. Dictated by Isabela Patton/mariusz TD: 05/25/2017 12:13 Unit #: [id number] #: [id number] Patient: ORION HUDDLESTON JOB #: [id number] HISTORY AND PHYSICAL Page 1 of 1 X Reynaldo Canales MD X HISTORY AND PHYSICAL
--- NOTE | ~2017-05-23 | CT2 ---
[facility] A Service of [facility] RADIOLOGY TEXT RESULTS PATIENT: ORION HUDDLESTON LOCATION: [facility] 46- : 76 UNIT #: [id number] AGE: [address]: Reynaldo Canales MD SEX: M ORDER DR: [id number] [facility] [address] [place], [place] [address] [id number] MR#: [id number] Acc #: [id number] NAME: ORION HUDDLESTON : 1980 SEX: M STUDY DATE/TIME: 05/24/2017 22:00 UNIT: [facility] ROOM: [facility] STUDY DESCRIPTION: CT Abd and Pelv W Cont Attending Physician: Reynaldo Canales M.D. Ordering Physician: Reynaldo Canales M.D. Primary Care Physician: Sandra Smallwood M.D. MEDICAL IMAGING REPORT This report is preliminary unless electronic signature is present EXAM CT abdomen and pelvis with contrast, 05/24/2017 HISTORY 36-year-old male with prior history of Crohn disease and proctocolectomy with right lower quadrant ileostomy. He is having acute GI blood loss from the ostomy with abdomen pain beginning earlier today. TECHNIQUE CT examination of the abdomen and pelvis was performed with oral and IV contrast. This CT exam was performed with one or more of the following radiation dose reduction techniques: Automatic exposure control, adjustment of mA and/or kV according to patient size, and iterative reconstruction. COMPARISON CT abdomen/pelvis, 04/26/2017. FINDINGS ABDOMEN FINDINGS: Postoperative changes of previous proctocolectomy with right lower quadrant ileostomy. [id number]-[id number] proximal small bowel dilatation is noted with fairly abrupt transition to normal-caliber small bowel in the midline pelvis (image 64). The degree of dilatation has improved since the prior study. At the site in caliber transition on the prior exam, segmental small bowel inflammation was noted, but this appears improved today. Partial obstruction due to a focal small bowel stricture or adhesion is suspected. There is no evidence of abscess or high-grade obstruction. Distal small bowel is normal in caliber to the level of the ostomy, and there is no parastomal hernia or additional abdominal wall abnormality. No other inflamed small bowel segments are demonstrated. Small bowel anastomosis clips in the right lower quadrant. Liver, pancreas, spleen and kidneys are normal in size and appearance. [facility] A Service of [facility] RADIOLOGY TEXT RESULTS PATIENT: ORION HUDDLESTON LOCATION: [id number] : 76 UNIT #: [id number] AGE: [address]: Reynaldo Canales MD SEX: M ORDER DR: Normal-caliber abdominal aorta. No gallbladder distension or bile duct dilatation. The gallbladder wall does appear mildly thickened. PELVIS FINDINGS: Urinary bladder is unremarkable. No pelvic abscess or other fluid collection. No inguinal hernia. Limited lung base images show no active disease in the lower chest. IMPRESSION 1. Postoperative changes of previous proctocolectomy with right lower quadrant ileostomy as well as small bowel anastomoses in the right lower quadrant. History of Crohn disease. 2. Segmental active small bowel inflammation in the mid pelvis seen on the previous study of 04/26/2017 has improved significantly today. Proximal to this, small bowel is mildly to moderately dilated today, but this is also improved since the prior study. There is residual mild focal small bowel wall thickening and some minimal adjacent soft tissue stranding in the mid pelvis, which may indicate mild active Crohn disease or an associated small bowel stricture, likely causing mild or partial small bowel obstruction. 3. Distal small bowel is normal in caliber to the level of the ileostomy, and there is no evidence of parastomal hernia or additional abdominal wall abnormality. 4. No evidence of abscess. No additional abnormal small bowel segments are demonstrated. 5. Mild gallbladder wall thickening. No gallbladder distension or bile duct dilatation. Dictated by... Pravin Salas M.D. THIS IS AN ELECTRONICALLY VERIFIED REPORT Pravin Salas M.D. at 05/25/2017 9:47 AM [place]/ghada TD: 05/25/2017 08:29 JOB #: [id number] MEDICAL IMAGING REPORT Page 1 of 1 COPY
[2017-05-23] MEDS ORDERED: K-DUR20 ME1 (20:41)
[2017-05-23] MEDS ORDERED: PREDNISONE PO (20:41)
[2017-05-23 21:15] LABS: BASOPHIL% 0.4 % (0-2.5); DIFF IND NO; EOSINOPHIL% 0.1 % (0.0-7.0); HEMATOCRIT 40.4 % (38.0-50.0); HEMOGLOBIN 13.4 gm/dL (13.0-16.0); LYMPHOCYTE# 1.4 X10e3 (1.0-3.5); MEAN CELL VOLUME 91.3 FL (83-96); MEAN CORPUSCULAR HEMOGLOBIN 30.3 PG (28-34); MEAN CORPUSCULAR HGB CONC 33.2 g/dL (30-36); MEAN PLATELET VOLUME 7.9 FL (6.5-11.5); MONOCYTE# 0.4 X10e3 (0-1.0); MONOCYTE% 4.3 % (3.0-12.0); NEUTROPHIL# 7.2 X10e3 (1.5-7.1); NEUTROPHIL% 79.2 % (40-75); PLATELET COUNT 247 X10e3 (140-420); PROTHROMBIN TIME (PATIENT) 11.3 SECONDS (9.5-12.4); RED BLOOD COUNT 4.42 X10e (3.90-5.60); RED CELL DISTRIBUTION WIDTH 16.3 % (11.0-15.5)
[2017-05-23 21:25] LABS: BILIRUBIN, DIRECT 0.1 mg/dL (0.0-0.2); BILIRUBIN,INDIRECT 0.4 mg/dL (0.0-0.9); BILIRUBIN,TOTAL 0.5 mg/dL (0.2-2.0); BUN/CREATININE RATIO 11.66; CALCIUM SERUM 8.7 mg/dL (8.4-10.2); CREATININE SERUM 1.2 mg/dL (0.6-1.4); GLOM FILT RATE Estimated 76.3 mL/min (>60); POTASSIUM 3.6 mmol/L (3.5-5.1); PROTEIN TOTAL SERUM 6.8 g/dL (6.0-8.3)
[2017-05-23 21:39] LABS: URINE SOURCE CLEAN CATCH
[2017-05-23 21:41] LABS: URINE APPEARANCE CLEAR; URINE BILIRUBIN NEG (NEG); URINE BLOOD NEG (NEG); URINE COLOR YELLOW; URINE GLUCOSE NEG (NORM); URINE KETONE NEG (NEG); URINE LEUKOCYTE ESTERASE NEG (NEG); URINE NITRATE NEG (NEG); URINE PROTEIN NEG (NEG); URINE UROBILINOGEN 0.2 MG/DL (NORM)
[2017-05-23 21:43] LABS: MICRO INDICATED? NO
[2017-05-23 22:13] LABS: POC - CKMB <1.0 ng/mL (0.0-7.9)
[2017-05-23 22:14] LABS: POC - MYOGLOBIN 35.5 ng/mL (0.0-169.0); POC - TROPONIN <0.05 ng/mL (<=0.05)
[2017-05-24] MEDS ORDERED: VITAMIN D250000 UNIT PO/SL (03:37)
[2017-05-24 07:28] LABS: HEMATOCRIT 34.2 % (38.0-50.0); LYMPHOCYTE# 0.8 X10e3 (1.0-3.5); LYMPHOCYTE% 6.9 % (17.0-45.0); MEAN CELL VOLUME 91.4 FL (83-96); MEAN CORPUSCULAR HEMOGLOBIN 30.6 PG (28-34); MEAN CORPUSCULAR HGB CONC 33.5 g/dL (30-36); MEAN PLATELET VOLUME 7.5 FL (6.5-11.5); MONOCYTE# 0.2 X10e3 (0-1.0); MONOCYTE% 1.3 % (3.0-12.0); NEUTROPHIL% 91.8 % (40-75); PLATELET COUNT 214 X10e3 (140-420); RED BLOOD COUNT 3.74 X10e (3.90-5.60); RED CELL DISTRIBUTION WIDTH 16.1 % (11.0-15.5)
[2017-05-24 07:38] LABS: DIFF IND NO; HEMOGLOBIN 11.4 gm/dL (13.0-16.0)
[2017-05-24 07:53] LABS: BUN/CREATININE RATIO 15.45; CALCIUM SERUM 8.1 mg/dL (8.4-10.2); CREATININE SERUM 1.1 mg/dL (0.6-1.4); GLOM FILT RATE Estimated 84.7 mL/min (>60); POTASSIUM 4.7 mmol/L (3.5-5.1)
[2017-05-24 12:27] LABS: BASOPHIL% 0.2 % (0-2.5); DIFF IND YES; EOSINOPHIL# 0.1 X10e3 (0-0.7); EOSINOPHIL% 0.5 % (0.0-7.0); HEMATOCRIT 33.9 % (38.0-50.0); HEMOGLOBIN 11.4 gm/dL (13.0-16.0); LYMPHOCYTE% 6.5 % (17.0-45.0); MEAN CELL VOLUME 91.1 FL (83-96); MEAN CORPUSCULAR HEMOGLOBIN 30.5 PG (28-34); MEAN CORPUSCULAR HGB CONC 33.5 g/dL (30-36); MEAN PLATELET VOLUME 7.5 FL (6.5-11.5); MONOCYTE# 0.6 X10e3 (0-1.0); MONOCYTE% 3.6 % (3.0-12.0); NEUTROPHIL# 13.8 X10e3 (1.5-7.1); NEUTROPHIL% 89.2 % (40-75); PLATELET COUNT 244 X10e3 (140-420); RED BLOOD COUNT 3.72 X10e (3.90-5.60); RED CELL DISTRIBUTION WIDTH 16.5 % (11.0-15.5); WHITE BLOOD COUNT 15.5 X10e3 (4.0-10.5)
[2017-05-24 13:02] LABS: PLATELET ESTIMATE NORMAL (NORMAL)
[2017-05-24 18:42] LABS: BASOPHIL% 0.1 % (0-2.5); HEMATOCRIT 33.4 % (38.0-50.0); HEMOGLOBIN 10.9 gm/dL (13.0-16.0); LYMPHOCYTE# 1.8 X10e3 (1.0-3.5); MEAN CELL VOLUME 91.7 FL (83-96); MEAN CORPUSCULAR HEMOGLOBIN 29.9 PG (28-34); MEAN CORPUSCULAR HGB CONC 32.5 g/dL (30-36); MEAN PLATELET VOLUME 7.3 FL (6.5-11.5); MONOCYTE% 6.5 % (3.0-12.0); NEUTROPHIL# 12.3 X10e3 (1.5-7.1); NEUTROPHIL% 81.4 % (40-75); PLATELET COUNT 252 X10e3 (140-420); RED BLOOD COUNT 3.64 X10e (3.90-5.60); RED CELL DISTRIBUTION WIDTH 16.6 % (11.0-15.5); WHITE BLOOD COUNT 15.1 X10e3 (4.0-10.5)
[2017-05-24 18:53] LABS: DIFF IND NO
[2017-05-25 04:05] LABS: BASOPHIL% 0.1 % (0-2.5); HEMATOCRIT 28.2 % (38.0-50.0); HEMOGLOBIN 9.3 gm/dL (13.0-16.0); LYMPHOCYTE# 1.1 X10e3 (1.0-3.5); MEAN CELL VOLUME 91.5 FL (83-96); MEAN CORPUSCULAR HEMOGLOBIN 30.3 PG (28-34); MEAN CORPUSCULAR HGB CONC 33.1 g/dL (30-36); MEAN PLATELET VOLUME 7.5 FL (6.5-11.5); MONOCYTE# 0.3 X10e3 (0-1.0); MONOCYTE% 3.1 % (3.0-12.0); NEUTROPHIL# 8.2 X10e3 (1.5-7.1); NEUTROPHIL% 85.8 % (40-75); PLATELET COUNT 224 X10e3 (140-420); RED BLOOD COUNT 3.08 X10e (3.90-5.60); RED CELL DISTRIBUTION WIDTH 16.5 % (11.0-15.5); WHITE BLOOD COUNT 9.6 X10e3 (4.0-10.5)
[2017-05-25 04:06] LABS: DIFF IND NO
[2017-05-25 04:37] LABS: CALCIUM SERUM 7.2 mg/dL (8.4-10.2); GLOM FILT RATE Estimated 95.1 mL/min (>60); POTASSIUM 4.1 mmol/L (3.5-5.1); PROTEIN TOTAL SERUM 5.1 g/dL (6.0-8.3)
[2017-05-25 12:35] LABS: BASOPHIL% 0.1 % (0-2.5); HEMATOCRIT 30.3 % (38.0-50.0); HEMOGLOBIN 10.1 gm/dL (13.0-16.0); LYMPHOCYTE# 0.8 X10e3 (1.0-3.5); MEAN CELL VOLUME 91.9 FL (83-96); MEAN CORPUSCULAR HEMOGLOBIN 30.7 PG (28-34); MEAN CORPUSCULAR HGB CONC 33.5 g/dL (30-36); MEAN PLATELET VOLUME 7.3 FL (6.5-11.5); MONOCYTE# 0.2 X10e3 (0-1.0); MONOCYTE% 1.8 % (3.0-12.0); NEUTROPHIL# 10.3 X10e3 (1.5-7.1); NEUTROPHIL% 91.1 % (40-75); PLATELET COUNT 242 X10e3 (140-420); RED CELL DISTRIBUTION WIDTH 16.4 % (11.0-15.5); WHITE BLOOD COUNT 11.3 X10e3 (4.0-10.5)
[2017-05-25 12:36] LABS: DIFF IND NO
== END 2017-05-25 13:10 | disposition short-term general hospital (02) | DRG 386 ==
LOC: SED 20:29 → SEDOF 23:16 → SED 23:16 → C4C 23:16 → SED 23:31 → SEDOF 23:31 → C4C 05-24 07:31 → SEDOF 05-24 17:05 → C4C 05-25 13:10
PROVIDERS: Emergency Medicine; Internal Medicine; Internal Medicine Gastroenterology
DX: K50.911 Crohn's disease, unspecified, with rectal bleeding (principal); D62 Acute posthemorrhagic anemia; E27.3 Drug-induced adrenocortical insufficiency; Z93.1 Gastrostomy status; Z90.49 Acquired absence of other specified parts of digestive tract
CPT/HCPCS: 36415; 71010; 74177; 80048; 80053; 80076; 81003; 82553; 83605; 83690; 83874; 84484; 85025; 85610; 85730; 86140; 93005; 96365; 96366; 96375; 96376; 99285; C9113; J1170; J2920; J2930; Q9967